=== PATIENT | female | born 1940 | race Caucasian/White ===

== ENCOUNTER → 2018-04-17 | Outpatient (CLI) | payer MEDICARE, OTHER ==
[~2018-04-17] MED LIST: BAYER ASPIRIN PO; FLUOXETINE HCL20 MG PO; IMIPRAMINE HCL50 MG PO; LISINOPRIL5 MG PO; OMEPRAZOLE20 MG PO; PREVAGEN PO; PROBIOTIC PO; TRIFLUOPERAZINE1 MG PO; VYTORIN 10-201 EACH PO
== END ==
LOC: MRI 13:16
PROVIDERS: ATTEND Family Medicine
DX: Z86.73 Personal history of transient ischemic attack (TIA), and cerebral infarction without residual deficits (principal)
CPT/HCPCS: 70551